=== PATIENT | female | born 1940 | race Caucasian/White ===

== ENCOUNTER 2025-04-19 17:03 | Emergency (ER) | payer MEDICARE ==
[~2025-04-19] VITALS: Ht 154.9 cm; Wt 61.0 kg
[2025-04-19 17:16] VITALS: O2SAT 98
[2025-04-19] MEDS: MIDAZOLAM HCL 2 MG/2 ML VIAL IM ONE (17:45)
[2025-04-19] MEDS ORDERED: AMLODIPINE 5MG TABLET PO SCH (18:00)
[2025-04-19] MEDS: ACETAMINOPHEN 500MG TABLET PO ONE (20:28)
[2025-04-19] MEDS: AMLODIPINE 5MG TABLET PO SCH (20:29)
[2025-04-19 20:30] VITALS: BP 185/70; PULSE 63; RESP 18; TEMP 36.7; O2SAT 97
== END 2025-04-19 20:34 | disposition home or self-care (01) ==
LOC: ER 17:03
DX: R07.89 Other chest pain (principal); M54.50 Low back pain, unspecified; E78.00 Pure hypercholesterolemia, unspecified; F03.90 Unspecified dementia, unspecified severity, without behavioral disturbance, psychotic disturbance, mood disturbance, and anxiety; I10 Essential (primary) hypertension; Z79.01 Long term (current) use of anticoagulants; W01.0XXA Fall on same level from slipping, tripping and stumbling without subsequent striking against object, initial encounter; Y93.89 Activity, other specified; Y92.89 Other specified places as the place of occurrence of the external cause; Y99.8 Other external cause status
CPT/HCPCS: 99284; 70450; 71111; J2250; 71101